=== PATIENT | female | born 1950 | race Caucasian/White ===

== ENCOUNTER 2018-10-31 14:27 | Inpatient (IN) ==
[2018-10-31] MEDS: Sod Chloride 0.9% Inj 1,000 ML IV.CONT SCH (14:45)
--- NOTE | 2018-10-31 14:58 | CT ---
EXAM DATE: 10/31/2018 2:47 PM EST AGE/SEX: 89 years / Female INDICATIONS: Stroke alert, right sided facial droop. CLINICAL DATA: This is the patient's initial encounter. Patient reports that signs and symptoms have been present for 1 day and indicates a pain score of Nonresponsive. MEDICAL/SURGICAL HISTORY: Non-responsive. Non-responsive. RADIATION DOSE: 52.83 CTDI (mGy) COMPARISON: No prior exams available for comparison. TECHNIQUE: CT of the head without contrast. Using automated exposure control and adjustment of the mA and/or kV according to patient size, radiation dose was kept as low as reasonably achievable to ob tain optimal diagnostic quality images. DICOM format image data is available electronically for revi ew and comparison. FINDINGS: Cerebrum: The ventricles are normal for age. Low-density left frontal parietal lobe likely acute inf arct. No evidence of midline shift, mass lesion or hemorrhage. No extraaxial fluid collections are s een. Posterior Fossa: The cerebellum and brainstem are intact. The 4th ventricle is midline. The cerebe llopontine angle is unremarkable. Extracranial: The visualized portion of the orbits is intact. Skull: The calvaria is intact. No evidence of skull fracture. CONCLUSION: 1. Small acute/subacute infarct left frontal parietal lobe. [facility] Electronically signed by: Magan Haney MD Board Certified Radiologist 10/31/2018 2:57 PM EST
[2018-10-31 15:16] LABS: Baso # (Auto) 0.1 th/mm3 (0.0-0.2); Baso % (Auto) 0.9 % (0.0-2.0); Eos # (Auto) 0.3 th/mm3 (0.0-0.4); Hematocrit 42.6 % (35.0-46.0); Lymph # (Auto) 3.6 th/mm3 (1.0-4.8); Lymph % (Auto) 44.3 % (9.0-44.0); Mean Corpuscular HGB Conc 35.2 % (32.0-36.0); Mean Corpuscular Volume 93.6 fL (80.0-100.0); Mean Platelet Volume 8.2 fL (7.0-11.0); Mono # (Auto) 0.5 th/mm3 (0.0-0.9); Mono % (Auto) 6.7 % (0.0-8.0); Neut # (Auto) 3.6 th/mm3 (1.8-7.7); Neut % (Auto) 44.1 % (16.0-70.0); Platelet Count 310 th/mm3 (150-450); Red Blood Count 4.55 mil/mm3 (4.00-5.30); Red Cell Distribution Width 12.1 % (11.6-17.2); White Blood Count 8.1 th/mm3 (4.0-11.0)
[2018-10-31 15:19] LABS: Activated Partial Thrombo Time 21.4 sec (23.4-31.7)
--- NOTE | 2018-10-31 15:21 | CT ---
EXAM DATE: 10/31/2018 3:15 PM EST AGE/SEX: 89 years / Female INDICATIONS: Stroke alert, right sided facial droop. CLINICAL DATA: This is the patient's initial encounter. Patient reports that signs and symptoms have been present for 1 day and indicates a pain score of Nonresponsive. MEDICAL/SURGICAL HISTORY: Non-responsive. Non-responsive. RADIATION DOSE: 9.95 CTDI (mGy) ; Combined studies [place] [facility] [place] W 3D, [place]/2018. [facility] [place] HEAD WO CON, 10/31/2018. . TECHNIQUE: Volumetric scanning was performed using a multi-row detector CT scanner during bolus infu maribell of 100 ml Visipaque 320 (iodixanol) nonionic water-soluble contrast as a cumulative dose for mu ltiple exams. The data was post processed with a variety of visualization algorithms including full volume maximum intensity projection, multi-planar sliding thin slab reformation, curved planar refor mation, and surface rendering techniques. Using automated exposure control and adjustment of the mA and/or kV according to patient size, radiation dose was kept as low as reasonably achievable to obtai n optimal diagnostic quality images. DICOM format image data is available electronically for review and comparison. FINDINGS: There is excellent visualization of the major intracranial arteries out to the second-order branch ve ssels. There is no evidence for aneurysm, vessel truncation or stenosis, and no evidence for vascula r malformation. CONCLUSION: 1. No large vessel stenosis or aneurysm. Report was called by Medina to [facility] . Electronically signed by: Magan Haney MD Board Certified Radiologist 10/31/2018 3:19 PM EST
--- NOTE | 2018-10-31 15:34 | CT ---
EXAM DATE: 10/31/2018 3:24 PM EST AGE/SEX: 89 years / Female INDICATIONS: Stroke alert, right sided facial droop. CLINICAL DATA: This is the patient's initial encounter. Patient reports that signs and symptoms have been present for 1 day and indicates a pain score of Nonresponsive. MEDICAL/SURGICAL HISTORY: Non-responsive. Non-responsive. RADIATION DOSE: 9.95 CTDI (mGy) ; Combined studies COMPARISON: No prior exams available for comparison. TECHNIQUE: Volumetric scanning was performed using a multirow detector CT scanner during bolus infus ion of 100 ml Visipaque 320 (iodixanol) nonionic water-soluble contrast as a cumulative dose for mul tiple exams. The data was postprocessed with a variety of visualization algorithms including full-v olume maximum intensity projection, multiplanar sliding thin-slab reformation, curved-planar reformat ion, and surface-rendering techniques. Using automated exposure control and adjustment of the mA and /or kV according to patient size, radiation dose was kept as low as reasonably achievable to obtain o ptimal diagnostic quality images. DICOM format image data is available electronically for review and comparison. Percent stenosis is calculated using the diameter of the stenotic region over the diameter of the nor mal distal internal carotid artery. FINDINGS: Aortic Arch: There is a three-vessel origin of the great vessels from the aorta. No evidence of ost ial narrowing Right Carotid: The common carotid artery is intact. The carotid bulb has a normal configuration wit hout ulceration or narrowing. The internal carotid artery lumen is smooth without stenosis. The ext ernal carotid artery is intact. Left Carotid: The common carotid artery is intact. The carotid bulb has a normal configuration with out ulceration or narrowing. The internal carotid artery lumen is smooth without stenosis. The exte rnal carotid artery is intact. Vertebrals: The vertebral arteries have a symmetric diameter. No stenotic lesions are seen. CONCLUSION: 1. No carotid stenosis seen Report was called by Medina to [facility]. Electronically signed by: Magan Haney MD Board Certified Radiologist 10/31/2018 3:32 PM EST
[2018-10-31] MEDS ORDERED: levETIRAcetam 1000mg/100mL Inj 100 ML IV.SIG ONE (15:36)
[2018-10-31 15:48] LABS: Creatine Kinase 100 U/L (26-192)
[2018-10-31] MEDS ORDERED: Aspirin 300 MG Supp RECTAL ONE (15:48)
[2018-10-31 15:57] VITALS: RESP 18
--- NOTE | 2018-10-31 16:08 | ECG ---
Date Performed: 10/31/2018 Time Performed: 14:28:23 PTAGE: 68 years EKG: Sinus rhythm POSSIBLE LEFT ATRIAL ENLARGEMENT INCOMPLETE RIGHT BUNDLE BRANCH BLOCK MODERATE ST DEPRESSION ABNORMA L ECG NO PREVIOUS TRACING DOCTOR: Connor Paniagua Interpretating Date/Time 10/31/2018 16:06:55
--- NOTE | 2018-10-31 16:13 | ED ---
HPI General Chief complaint: Neuro Symptoms/Deficit Stated complaint: medical Time Seen by Provider: 10/31/18 14:35 Source: patient Limitations: altered mental status History of Present Illness HPI narrative: 68-year-old female presents with her grandson with 30-minute onset of unable to talk and feels like she is having a stroke again. She originally was registered as a [facility] patient as he did not have her license to confirm her name initially. He states that she has had history of strokes before as well as seizures. He states she has been taking her seizure meds but is not sure which ones. Patient is currently nonverbal and cannot provide me with any history and history is significantly limited. Related Data Allergies Allergy/AdvReac Type Severity Reaction Status Date / Time No Allergy Information Allergy Unverified 10/31/18 14:31 Available Review of Systems ROS Unobtainable ROS Unobtainable: unobtainable due to mental status PMFSH History History Provided By: Medical Record (January 2018 left parietal intracranial hemorrhage, seizure disorder, similar presentation with prior seizures) Medical History Medical History History of stroke (Acute) Social History Social History Substance History: Unable to Obtain Smoking Status: Unknown if ever smoked How Often Do You Have a Drink Containing Alcohol: Unable to Obtain Recent Travel in [place] within the Last 8 Weeks: No Recent Out of Country Travel within the Last 8 Weeks: No Immunization History Tetanus Immunization: Unable to Assess Exam Narrative Exam Narrative: GENERAL: 68-year-old female in no apparent distress SKIN: Focused skin assessment warm/dry. HEAD: Atraumatic. Normocephalic. EYES: Pupils equal and round. No scleral icterus. No injection or drainage. ENT: No nasal bleeding or discharge. Mucous membranes pink and moist. NECK: Trachea midline. No JVD. CARDIOVASCULAR: Regular rate and rhythm. RESPIRATORY: No accessory muscle use. Clear to auscultation. Breath sounds equal bilaterally at apices. GASTROINTESTINAL: Abdomen soft, nondistended. MUSCULOSKELETAL: No obvious deformities. No clubbing. No cyanosis. No edema. NEUROLOGICAL: patient is nonverbal, patient is having difficulty following commands but has muscle tone noted when I try to lift both her arms, she is able to move her toes but is very difficult to get a great neuro assessment given when I asked her something she looks at me confused and cannot do it on initial assessment Course Reevaluation(s) Reevaluation #1: On review of records patient has history of intracranial hemorrhage on January 2018 and is not a candidate for TPA. Presentation is more likely possible seizure so she was given half a milligram of Ativan and given a gram of Keppra. Dilantin level added on. Today's CT showed left frontal parietal lobe infarct so she was given rectal aspirin and she will be admitted to get additional care. Prior records found with [id number] medical record number under this name Reevaluation #2: Jasmine updated and agrees to plan Consultations Consultation #1: dr de la fuente agrees no tpa given ich history and to place on seizure medation Consultation #2: dr goldberg agrees to admit Initial Documented Vital Signs Temperature 98.7 F 10/31/18 14:28 Pulse Rate 95 H 10/31/18 14:28 Respiratory Rate 18 10/31/18 14:28 Blood Pressure 154/70 H 10/31/18 14:28 Pulse Oximetry 99 10/31/18 14:28 Last Documented Vital Signs Temperature 98.7 F 10/31/18 14:28 Pulse Rate 75 10/31/18 15:30 Respiratory Rate 18 10/31/18 15:30 Blood Pressure 108/55 L 10/31/18 15:30 Pulse Oximetry 98 10/31/18 15:30 NIH Stroke Scale NIH Stroke Scale Level of Consciousness: 0-Alert Orientation Questions: 2-Neither task correct Responds to Commands: 1-One task correct Gaze Eye Movement: 1-Partial gaze palsy Visual Plascencia: 1-Partial hemianopia Facial Movement: 3-Complete unilateral palsy Motor Functions Arm LEFT: 1-Drift before 10 seconds Motor Functions Arm RIGHT: 2-Falls before 10 seconds Motor Functions Leg LEFT: 2-Falls before 5 seconds Motor Functions Leg RIGHT: 1-Drift before 5 seconds Limb Ataxia: 1-Ataxia in one limb Sensory Loss: 1-Mild sensory loss Best Language: 3-Mute or global aphasia Articulation: UN-Intubated / Barriers Extinction or Inattention Sensory: 2-Loss 2 modalities Total: 21 Medical Decision Making MDM Narrative Medical decision making narrative: Stroke alert was initiated given weakness and a aphasia with 30-minute onset. Will follow test and reevaluate Medical Screen Exam Complete: Yes Emergency Medical Condition: Yes Differential Diagnosis Differential Diagnosis: Stroke, bleed, seizure Lab Data Result diagrams: 10/31/18 14:30 Lab Results 10/31/18 10/31/18 10/31/18 Range/Units 14:30 14:30 14:30 WBC 8.1 (4.0-11.0) th/mm3 RBC 4.55 (4.00-5.30) mil/mm3 Hgb 15.0 (11.6-15.3) gm/dL POC Hgb (Calc) 14.6 (11.6-15.3) g/dL Hct 42.6 (35.0-46.0) % POC Hct 43.0 (35-46.0) % MCV 93.6 (80.0-100.0) fL MCH 33.0 (27.0-34.0) pg MCHC 35.2 (32.0-36.0) % RDW 12.1 (11.6-17.2) % Plt Count 310 (150-450) th/mm3 MPV 8.2 (7.0-11.0) fL Neut % (Auto) 44.1 (16.0-70.0) % Lymph % (Auto) 44.3 H (9.0-44.0) % [place] % (Auto) 6.7 (0.0-8.0) % Eos % (Auto) 4.0 (0.0-4.0) % Baso % (Auto) 0.9 (0.0-2.0) % Neut # (Auto) 3.6 (1.8-7.7) th/mm3 Lymph # (Auto) 3.6 (1.0-4.8) th/mm3 [place] # (Auto) 0.5 (0.0-0.9) th/mm3 Eos # (Auto) 0.3 (0.0-0.4) th/mm3 Baso # (Auto) 0.1 (0.0-0.2) th/mm3 WBC Differential . Differential Comment Auto diff final PT 10.0 (9.8-11.6) sec INR 1.0 Ratio APTT 21.4 L (23.4-31.7) sec Fibrinogen 345 (227-377) mg/dL POC Sodium 138 (137-144) mmol/L POC Potassium 3.5 L (3.6-5.0) mmol/L POC Chloride 103 (102-111) mmol/L POC BUN 18 (5-21) mg/dL POC Creatinine 0.9 (0.6-1.3) mg/dL POC Glucose 103 (68-110) mg/dL Total Creatine Kinase 100 (26-192) U/L Troponin I Less than 0.02 L (0.02-0.05) ng/mL Imaging Data Radiologist's impression: Head CT 10/31/18 14:35 CONCLUSION: 1. Small acute/subacute infarct left frontal parietal lobe. Report was called by Medina Mcmillan. Head CTA 10/31/18 14:35 CONCLUSION: 1. No large vessel stenosis or aneurysm. Report was called by Medina to [facility] . Neck CTA 10/31/18 14:35 CONCLUSION: 1. No carotid stenosis seen Report was called by Medina De La Fuente. Discharge Plan Discharge Disposition Patient Disposition: ED Admit(ED Internal Use Only) Discharge Order Discharge Orders: ED Use Only Admit Order (Routine); Ordered 10/31/18 Ordered By: Jaycee Mcmillan Discharge Details Diagnosis: Expressive aphasia, Weakness Physicians Team ED Provider: Jaycee Mcmillan Primary Care Provider: Germán Smith Attending Provider: Nga Goldberg Discharge Interventions Interventions: Vital Signs Last Done: 10/31/18 15:30 Status ED Status: Admitted Patient
[2018-10-31] MEDS ORDERED: Bisacodyl 10 MG Supp RECTAL PRN (16:14)
[2018-10-31] MEDS ORDERED: Acetaminophen 325 MG Tablet PO PRN (16:14)
[2018-10-31] MEDS ORDERED: Enoxaparin Inj 40 MG/0.4 ML Syringe SQ SCH (16:15)
[2018-10-31 16:38] LABS: Amphetamine Screen,Urine Neg (Neg); Barbiturate Screen,Urine Neg (Neg); Cannabinoid Screen,Urine Neg (Neg); Cocaine Screen,Urine Neg (Neg)
[2018-10-31 16:43] LABS: Bilirubin,Urine Negative (Negative); Clarity,Urine Clear (Clear); Color,Urine Straw (Yellw/Straw); Glucose,Urine (UA) Negative (Negative); Leukocyte Esterase,Urine Negative (Negative); Mucus,Urine Few /lpf (Occasional); Nitrite,Urine Negative (Negative); Specific Gravity,Urine 1.033 (1.002-1.035)
[2018-10-31 16:44] LABS: Opiate Screen,Urine Neg (Neg)
--- NOTE | 2018-10-31 17:22 | P.HPIM ---
History of Present Illness Primary Care Physician: Germán Urbina MD Chief Complaint: cant talk History of Present Illness: 68yo w f w hx of stroke presents to ED 30 min after acute onset of difficulty speaking and moving her right arm. She has had prior left sided stroke and right hemiparesis and subsequent hemorrhagic cva in january of last year but has been taking aspirin. Her grandson at bedside states she has been in her normal state of health until today. She has been going to the eye doctor, getting vitreal injections to the left eye for macular degeneration but most recently last week it was cancelled bc opthamologist told her it appeared that she had a L opthalmic artery infarction and was told to go have a carotid doppler done. Patient has had multiple episodes like this, per the Grandson, about every two weeks. She has had a ZAYRA that was neg for thrombus or shunt, and she also has had loop recorder placement with no evidence of arrhythmia. Patient was unable to speak or move right arm and had some left arm weakness in the ED, and was mildly hypertensive initially, Grandson mentioned that her blood pressures have been dropping and her pcp wanted to decrease her bp medication, but her blood pressures are labile and were then going up as well. During my exam, patient was attempting to speak but it was sputtering and she was having difficulty with word finding, she was reaching to the right side with her left arm, and unable to follow commands, but seemed to understand requests. PMhx: htn, hypothyroidism, macular degeneration, seizure do, breast ca post radiation left, PSXhx:eye surgery as child, loop recorder, zayra, lumpectomy left breast SOChx:denies tobacco was a smoker quit , no vapes, denies etoh other than occasional FAMhx: cad, htn Inpatient Certification Inpatient Certification: I certify that the inpatient services were ordered in accordance with Medicare regulations governing the order. This includes certification that hospital inpatient services are reasonable and necessary and in the case of services not specified as inpatient-only under 42 CFR 419.22(n), that they are appropriately provided as inpatient services in accordance to with the 2-midnight benchmark under 43 CFR 412.3(e) Estimated Total Length of Stay (Days): 2 Plans for Post Hospital Care: Other acute care hospital Review of Systems ROS Unobtainable: unobtainable due to mental status [facility] Medical History Medical History History of stroke (Acute) Social History Social History Substance History: Unable to Obtain Smoking Status: Unknown if ever smoked How Often Do You Have a Drink Containing Alcohol: Unable to Obtain Recent Travel in [facility] within the Last 8 Weeks: No Recent Out of Country Travel within the Last 8 Weeks: No Immunization History Tetanus Immunization: Unable to Assess Medications and Allergies Allergies Allergy/AdvReac Type Severity Reaction Status Date / Time No Allergy Information Allergy Unverified 10/31/18 14:31 Available Home Medications Medication Instructions Recorded Confirmed Type Unable to Obtain Home Meds 10/31/18 10/31/18 History Active Medications: Active Medications Acetaminophen (Tylenol) 650 mg PO Q4H PRN PRN Reason: Temp > 100.4 Al Hydroxide/Mg Hydroxide (Milk Of Magnesia Liq) 30 ml PO Q12H PRN PRN Reason: Mild Constipation Bisacodyl (Dulcolax Supp) 10 mg RECTAL DAILY PRN PRN Reason: SEVERE CONSITIPATION Enoxaparin Sodium (Lovenox Inj) 40 mg SQ Q24H [facility] Sodium Chloride (Ns Inj) 1,000 mls @ 70 mls/hr IV.CONT .[id number] [facility] Last Admin: 10/31/18 14:45 Dose: 70 mls/hr Lactulose (Lactulose Liq) 30 ml PO DAILY PRN PRN Reason: SEVERE CONSITIPATION Ondansetron HCl (Zofran Inj) 4 mg IV.PUSH Q6H PRN PRN Reason: NAUSEA OR VOMITING Senna/Docusate Sodium (Jessica-Colace) 1 tab PO BID [facility] Sennosides (Senokot) 17.2 mg PO Q12H PRN PRN Reason: Moderate Constipation Sodium Chloride (Ns Flush) 2 ml IV.FLUSH BID JER[facility]Y Sodium Chloride (Ns Flush) 2 ml IV.FLUSH PRN PRN PRN Reason: FLUSH AFTER USING IV ACCESS Physical Exam Vital signs: Vital Signs 10/31/18 14:28 10/31/18 14:31 10/31/18 14:35 Temperature 98.7 F Pulse Rate 95 H 87 Respiratory Rate 18 16 Blood Pressure 154/70 H 152/68 H Pulse Oximetry 99 100 99 10/31/18 15:30 Temperature Pulse Rate 75 Respiratory Rate 18 Blood Pressure 108/55 L Pulse Oximetry 98 Intake & Output 10/30/18 10/31/18 10/31/18 18:59 06:59 18:59 Weight 72.575 kg Narrative: GEN well-developed well-nourished 68yo w f awake alert pleasant in no acute distress, with expressive aphasia, HEENT normocephalic atraumatic, Pupils equal reactive, sclerae anicteric, extraocular motion intact, proptic L eye, mucosa is moist. posterior pharynx no exudate NECK supple no JVD trachea midline thyroid smooth not enlarged ANT CHEST WALL without mass or tenderness to palpation HEART S1-S2 regular without significantmurmur gallops or clicks LUNGS clear to auscultation without wheeze rales or rhonchi , full symmetric expansion BACK exam is no CVA tenderness or mass ABDOMEN soft nondistended positive bowel sounds no guarding rebound rigidity LYMPH NODES no cervical, axillary or inguinal adenopathy noted EXTREMITIES no clubbing cyanosis or significant edema, peripheral pulses palpable +2 NEUROLOGIC cranial nerves II through XII appear grossly intact, strength is 2 out of 5 right upper, 4/5 r upper, weaker RLE, unable to follow commands to move le, babinski equivocal SKIN warm and dry with decreased turgor, no other rash or sores noted Urinary Catheter Management Straight: Cath placed during this visit: yes Reason for continuing: Not indwelling catheter Insertion date: 10/31/18 Insertion time: 16:00 Results Labs CBC & Chem 7: 10/31/18 14:[address] 10/31/18 14:35 CONCLUSION: 1. Small acute/subacute infarct left frontal parietal lobe. Report was called by [facility] bernabe Mcmillan. Head CTA 10/31/18 14:35 CONCLUSION: 1. No large vessel stenosis or aneurysm. Report was called by Tocrahat to [facility] . Neck CTA 10/31/18 14:35 CONCLUSION: 1. No carotid stenosis seen Report was called by Medina to [facility]. Caprini VTE Risk Assessment Caprini VTE Risk Assessment: Moderate/High Risk (score >= 2) Caprini Risk Assessment Model: Point Value = 1 Point Value = 2 Point Value = 3 Point Value = 5 Age 41-60 Minor surgery BMI > 25 kg/m2 Swollen legs Varicose veins or History of unexplained or recurrent spontaneous Oral contraceptives or hormone replacement Sepsis (< 1 month) Serious lung disease, including pneumonia (< 1 month) Abnormal pulmonary function Acute myocardial infarction Congestive heart failure (< 1 month) History of inflammatory bowel disease Medical patient at bed rest Age 61-74 Arthroscopic surgery Major open surgery (> 45 min) Laparoscopic surgery (> 45 min) Malignancy Confined to bed (> 72 hours) Immobilizing plaster cast Central venous access Age >= 75 History of VTE Family history of VTE Factor V Leiden Prothrombin [id number] Lupus anticoagulant Anticardiolipin antibodies Elevated serum homocysteine Heparin-induced thrombocytopenia Other congenital or acquired thrombophilia Stroke (< 1 month) Elective arthroplasty Hip, pelvis, or leg fracture Acute spinal cord injury (< 1 month) Prophylaxis Regimen: Total Risk Factor Score Risk Level Prophylaxis Regimen 0-1 Low Early ambulation 2 Moderate Order ONE of the following: *Sequential Compression Device (SCD) *Heparin 5000 units SQ BID 3-4 Higher Order ONE of the following medications: *Heparin 5000 units SQ TID *Enoxaparin/Lovenox 40 mg SQ daily (WT < 150 kg, CrCl > 30 mL/min) *Enoxaparin/Lovenox 30 mg SQ daily (WT < 150 kg, CrCl > 10-29 mL/min) *Enoxaparin/Lovenox 30 mg SQ BID (WT < 150 kg, CrCl > 30 mL/min) AND/OR *Sequential Compression Device (SCD) 5 or more Highest Order ONE of the following medications: *Heparin 5000 units SQ TID (Preferred with Epidurals) *Enoxaparin/Lovenox 40 mg SQ daily (WT < 150 kg, CrCl > 30 mL/min) *Enoxaparin/Lovenox 30 mg SQ daily (WT < 150 kg, CrCl > 10-29 mL/min) *Enoxaparin/Lovenox 30 mg SQ BID (WT < 150 kg, CrCl > 30 mL/min) AND *Sequential Compression Device (SCD) Assessment and Plan Plan ACUTE CVA L FRONTOPARIETAL LOBE infarct w expressive aphasia and left sided weakness - admit, PT,ST,OT, Neuro eval, mra head/neck, statin, hypercoag panel? asa. HX L CVA w encephalomalacia and R HEMIPARESIS, L Parietal ICH 01/30 - not candidate for TPA SEIZURE DO - cont home meds, dilantin pending HTN - labile - was 165 admit then 95. HYPOTHYROIDISM - cont synthroid Hx BREAST CA pos radiation - post tamoxifen HYPOKALEMIA - replace per protocol, check mg dvt prophylaxis dispo - rehab anticipated.
[2018-10-31] MEDS ORDERED: levETIRAcetam 1000mg/100mL Inj 100 ML IV.SIG SCH (18:00)
[2018-10-31 21:04] LABS: D-Dimer 0.38 mg/L FEU (0.00-0.50)
[2018-10-31] MEDS: Senna/Docusate Sodium 8.6/50 MG Tablet PO SCH (22:17)
[2018-11-01] MEDS: levETIRAcetam 1000mg/100mL Inj 100 ML IV.SIG SCH ×2 (04:21→17:00)
[2018-11-01] MEDS: Sod Chloride 0.9% Inj 1,000 ML IV.CONT SCH (06:44)
[2018-11-01] MEDS: Senna/Docusate Sodium 8.6/50 MG Tablet PO SCH (08:43)
[2018-11-01] MEDS ORDERED: Gadobutrol PF 7.5 MMOL/7.5 ML Vial (for RAD) IV.SIG ONE (11:22)
--- NOTE | 2018-11-01 11:37 | MR ---
EXAM DATE: 11/01/2018 11:28 AM EST AGE/SEX: 68 years / Female INDICATIONS: Aphasia. Weakness. CLINICAL DATA: This is the patient's initial encounter. Patient reports that signs and symptoms have been present for 2 days and indicates a pain score of 0/10. MEDICAL/SURGICAL HISTORY: Hypertension. Hypothyroidism. Carcinoma, breast. Seiaures.CVA. . Loop recorder.DELIA.Left breast lumpectomy. COMPARISON: [facility], MR HEAD W/O CONTRAST, 09/22/2018. . TECHNIQUE: Multiplanar, multisequence examination of the brain was performed without and with 7cc ml Gadavist (gadobutrol) contrast as a single exam dose. FINDINGS: Cerebrum: Encephalomalacia left parietal lobe likely from old infarct. There is some hemosiderin dep osition. The ventricles are normal for age. No evidence of midline shift, mass lesion, hemorrhage or acute infarction. No extraaxial fluid collections are seen. The pituitary gland and suprasellar ci santamaria are normal in configuration. White Matter: No significant signal abnormalities are seen in the white matter. Posterior Fossa: The cerebellum and brainstem are intact. The 4th ventricle is midline. The cerebel lopontine angle is unremarkable. The cerebellar tonsils are normal in position. Diffusion Imaging: No focal areas of restricted diffusion are seen. No evidence of acute infarction . Extracranial: The visualized portions of the orbits and paranasal sinuses are unremarkable. Post Contrast: Very minimal enhancement within the old infarct left parietal lobe. CONCLUSION: 1. Old infarct left parietal lobe with hemosiderin deposition. Very minimal enhancement noted. 2. The remainder the brain is otherwise unremarkable. Electronically signed by: Magan Haney MD Board Certified Radiologist 11/01/2018 11:36 AM EST
[2018-11-01] MEDS ORDERED: LORazepam 1 MG Tablet PO ONE (12:43)
--- NOTE | 2018-11-01 12:43 | P.CONNEU ---
History of Present Illness Service: Neurology Primary Care Provider: Germán Urbina MD Chief Complaint: cant talk History of Present Illness: 68-year-old female readmitted for acute speech changes. These have resolved. Similar presentation to previous ER visits. Due to her history of ICH previous similar episodes which resolved she is not IV TPA candidate. She states she has been taking her Keppra. Had difficulty tolerating Dilantin. On her own accord she has been taking a baby aspirin. We discussed the risks and benefits of this in light of her previous ICH. Similar episode occurring 09/2018, 08/2018. MRI scans done at those dates and carotid imaging have been negative. Episodes felt to be seizures 03/2018 MRI brain scan demonstrated possible ischemic region outside the area of her old intracranial hemorrhage. Carotid imaging negative at that time. Aphasia with right-sided jerking. 01/2018 she suffered a left intracranial hemorrhage and resultant seizure activity. Review of Systems All other systems reviewed negative except as stated in HPI [facility] - History History Provided By: Patient - Medical History Medical History: Medical History (Last Reviewed 11/01/18 @ 09:04 by Daily Jimenez) History of stroke - Tobacco History Second Hand Smoke Exposure: No Tobacco Use In Past 30 Days: No Smoking Status: Former smoker - Alcohol History How Often Do You Have a Drink Containing Alcohol: 4 or more times a week - Substance Use History Substance History: No History of Abuse - Travel History Recent Travel in the [place] Within the Last 8 Weeks: No Recent Travel Out of the Country Within the Last 8 Weeks: No - Immunization History Tetanus Immunization: <5 Years Hx Influenza Vaccine This Season: No Medications and Allergies Active Medications: Active Medications Acetaminophen (Tylenol) 650 mg PO Q4H PRN PRN Reason: Temp > 100.4 Al Hydroxide/Mg Hydroxide (Milk Of Magnesia Liq) 30 ml PO Q12H PRN PRN Reason: Mild Constipation Bisacodyl (Dulcolax Supp) 10 mg RECTAL DAILY PRN PRN Reason: SEVERE CONSITIPATION Enoxaparin Sodium (Lovenox Inj) 40 mg SQ Q24H [facility] Last Admin: 10/31/18 17:29 Dose: Not Given Sodium Chloride (Ns Inj) 1,000 mls @ 70 mls/hr IV.CONT .[id number] [facility] Last Admin: 11/01/18 06:44 Dose: 70 mls/hr Levetiracetam (Keppra 1000 Mg/100 Ml Premix) 100 mls @ 400 mls/hr IV.SIG Q12H [facility] Last Infusion: 11/01/18 05:49 Dose: Infused Lactulose (Lactulose Liq) 30 ml PO DAILY PRN PRN Reason: SEVERE CONSITIPATION Ondansetron HCl (Zofran Inj) 4 mg IV.PUSH Q6H PRN PRN Reason: NAUSEA OR VOMITING Potassium Chloride (K-Dur) 20 meq PO BID [facility] Last Admin: 10/31/18 22:16 Dose: Not Given Senna/Docusate Sodium (Jessica-Colace) 1 tab PO BID [facility] Last Admin: 11/01/18 08:43 Dose: Not Given Sennosides (Senokot) 17.2 mg PO Q12H PRN PRN Reason: Moderate Constipation Sodium Chloride (Ns Flush) 2 ml IV.FLUSH BID [facility] Last Admin: 10/31/18 22:17 Dose: Not Given Sodium Chloride (Ns Flush) 2 ml IV.FLUSH PRN PRN PRN Reason: FLUSH AFTER USING IV ACCESS Allergies Allergy/AdvReac Type Severity Reaction Status Date / Time No Allergy Information Allergy Verified 10/31/18 18:08 Available Home Medications Medication Instructions Recorded Confirmed Type Unable to Obtain Home Meds 10/31/18 10/31/18 History Exam Vital signs: Vital Signs 10/31/18 14:28 10/31/18 14:31 10/31/18 14:35 Temperature 98.7 F Pulse Rate 95 H 87 Respiratory Rate 18 16 Blood Pressure 154/70 H 152/68 H Pulse Oximetry 99 100 99 10/31/18 15:30 10/31/18 16:00 10/31/18 17:00 Temperature Pulse Rate 75 74 75 Respiratory Rate 18 18 18 Blood Pressure 108/55 L 92/54 L 108/60 Pulse Oximetry 98 97 100 10/31/18 20:00 10/31/18 21:03 11/01/18 00:00 Temperature 98.4 F 97.8 F Pulse Rate 65 72 70 Respiratory Rate 18 18 Blood Pressure 121/70 111/66 Pulse Oximetry 97 98 11/01/18 01:30 11/01/18 04:00 11/01/18 04:19 Temperature 98.0 F Pulse Rate 70 61 65 Respiratory Rate 18 Blood Pressure 119/72 Pulse Oximetry 98 11/01/18 08:00 11/01/18 08:39 Temperature 97.8 F Pulse Rate 66 80 Respiratory Rate 18 Blood Pressure 133/82 Pulse Oximetry 97 Intake & Output 10/31/18 11/01/18 11/01/18 18:59 06:59 18:59 Intake Total 100 / 100 1100 / 1100 Output Total 300 / 300 Balance 100 / 100 800 / 800 Weight 72.575 kg 74 kg Intake: IV 100 / 100 1100 / 1100 NS Inj 1,000 ML @ 70 mls/hr IV. 1000 / 1000 CONT .[id number] [facility] Rx#:[id number] Keppra 1000 mg/100 mL Premix 100 / 100 100 / 100 100 ML @ 400 mls/hr IV.SIG Q12H [facility] Rx#:[id number] Oral 0 / 0 Output: Urine 300 / 300 Other: Date of Last Bowel Movement 10/31/18 Narrative: GENERAL: in NAD, SKIN: Warm and dry. HEAD: Atraumatic. Normocephalic. EYES: Pupils equal and round. No scleral icterus. ENT: No nasal bleeding or discharge. NECK: Trachea midline. No JVD. CARDIOVASCULAR: Regular rate and rhythm. RESPIRATORY: No accessory muscle use. GASTROINTESTINAL: Abdomen soft, non-tender, nondistended. MUSCULOSKELETAL: Extremities without clubbing, cyanosis, or edema. NEUROLOGICAL: Awake and alert. No aphasia, oriented x3 fluent articulate, No facial asymmetry, OU 3-2mm, eomi, mild visual field deficit OD, No drift, Motor grossly within normal limits. Five out of 5 muscle strength in the arms and legs. PSYCHIATRIC: Slightly agitated, pressured speech - Constitutional no acute distress - Routine HEENT Exam Head: Present: normocephalic Eye: Present: EOMI Results - Labs CBC & Chem 7: 10/31/18 14:30 Labs: Laboratory Results - last 24 hr 10/31/18 10/31/18 10/31/18 14:30 14:30 14:30 WBC 8.1 RBC 4.55 Hgb 15.0 POC Hgb (Calc) 14.6 Hct 42.6 POC Hct 43.0 MCV 93.6 MCH 33.0 MCHC 35.2 RDW 12.1 Plt Count 310 MPV 8.2 Neut % (Auto) 44.1 Lymph % (Auto) 44.3 H [place] % (Auto) 6.7 Eos % (Auto) 4.0 Baso % (Auto) 0.9 Neut # (Auto) 3.6 Lymph # (Auto) 3.6 [place] # (Auto) 0.5 Eos # (Auto) 0.3 Baso # (Auto) 0.1 WBC Differential . Differential Comment Auto diff final PT 10.0 INR 1.0 APTT 21.4 L Fibrinogen 345 D-Dimer Quant (PE/DVT) POC Sodium 138 POC Potassium 3.5 L POC Chloride 103 POC BUN 18 POC Creatinine 0.9 POC Glucose 103 Total Creatine Kinase 100 Troponin I Less than 0.02 L Urine Color Urine Clarity Urine pH Ur Specific [place] Urine Protein Urine Glucose (UA) Urine Ketones Urine Occult Blood Urine Nitrate Urine Bilirubin Urine Urobilinogen Ur Leukocyte Esterase Urine WBC Urine Mucus Micro UA Comment Ur Microscopic Review Urine Culture Comments Urine Opiates Screen Ur Barbiturates Screen Phenytoin Ur Amphetamines Screen U Benzodiazepines Scrn Urine Cocaine Screen U Cannabinoids Screen Blood Type Antibody Screen 10/31/18 10/31/18 10/31/18 16:00 16:00 16:00 WBC RBC Hgb POC Hgb (Calc) Hct POC Hct MCV MCH MCHC RDW Plt Count MPV Neut % (Auto) Lymph % (Auto) [place] % (Auto) Eos % (Auto) Baso % (Auto) Neut # (Auto) Lymph # (Auto) [place] # (Auto) Eos # (Auto) Baso # (Auto) WBC Differential Differential Comment PT INR APTT Fibrinogen D-Dimer Quant (PE/DVT) POC Sodium POC Potassium POC Chloride POC BUN POC Creatinine POC Glucose Total Creatine Kinase Troponin I Urine Color Straw Urine Clarity Clear Urine pH 5.0 Ur Specific [place] 1.033 Urine Protein Negative Urine Glucose (UA) Negative Urine Ketones Negative Urine Occult Blood Negative Urine Nitrate Negative Urine Bilirubin Negative Urine Urobilinogen Less than 2 Ur Leukocyte Esterase Negative Urine WBC Less than 1 Urine Mucus Few H Micro UA Comment Cath-culture not ind Ur Microscopic Review Not Reportable Urine Culture Comments Cath-cult not ind Urine Opiates Screen Neg Ur Barbiturates Screen Neg Phenytoin Less than 0.4 L Ur Amphetamines Screen Neg U Benzodiazepines Scrn Neg Urine Cocaine Screen Neg U Cannabinoids Screen Neg Blood Type Antibody Screen 10/31/18 10/31/18 16:46 20:30 WBC RBC Hgb POC Hgb (Calc) Hct POC Hct MCV MCH MCHC RDW Plt Count MPV Neut % (Auto) Lymph % (Auto) [place] % (Auto) Eos % (Auto) Baso % (Auto) Neut # (Auto) Lymph # (Auto) [place] # (Auto) Eos # (Auto) Baso # (Auto) WBC Differential Differential Comment PT INR APTT Fibrinogen 264 D-Dimer Quant (PE/DVT) 0.38 POC Sodium POC Potassium POC Chloride POC BUN POC Creatinine POC Glucose Total Creatine Kinase Troponin I Urine Color Urine Clarity Urine pH Ur Specific [place] Urine Protein Urine Glucose (UA) Urine Ketones Urine Occult Blood Urine Nitrate Urine Bilirubin Urine Urobilinogen Ur Leukocyte Esterase Urine WBC Urine Mucus Micro UA Comment Ur Microscopic Review Urine Culture Comments Urine Opiates Screen Ur Barbiturates Screen Phenytoin Ur Amphetamines Screen U Benzodiazepines Scrn Urine Cocaine Screen U Cannabinoids Screen Blood Type AB Positive Antibody Screen Negative - Imaging Impressions Head CT 10/31/18 14:35 CONCLUSION: 1. Small acute/subacute infarct left frontal parietal lobe. Report was called by [facility] to [facility]. Head CTA 10/31/18 14:35 CONCLUSION: 1. No large vessel stenosis or aneurysm. Report was called by [facility] to [facility] . Neck CTA 10/31/18 14:35 CONCLUSION: 1. No carotid stenosis seen Report was called by [facility] to [facility]. Head MRI 11/01/18 00:00 CONCLUSION: 1. Old infarct left parietal lobe with hemosiderin deposition. Very minimal enhancement noted. 2. The remainder the brain is otherwise unremarkable. 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 Vascular imaging negative. EEG is positive Possible postictal mild encephalopathy/irritability Seen by hematology in the past. Seen by cardiology had a DELIA which was negative for PFO Recommendation Follow-up Keppra level Start Tegretol EEG Follow-up MRI brain No driving, operating any heavy machinery or dangerous machinery, swimming alone for at least 6 months of being seizure, spell free.
[2018-11-01 12:56] VITALS: O2SAT 98
[2018-11-01] MEDS ORDERED: carBAMazepine 100 MG Chewable Tablets PO SCH (13:00)
--- NOTE | 2018-11-01 15:47 | P.PNIM ---
Subjective Interval history: Nursing denies any deterioration since last night. Patient denies having headaches nausea vomiting. She starts yelling at me asking me why no one has done a Doppler of her carotid ultrasounds. I informed her that we did a much more sensitive test which was a CTA of the neck which showed good blood flow in the carotid arteries. Patient expresses hesitation to starting Tegretol due to some drowsiness side effects of the medication. She reiterates multiple times that she thinks her blood pressure has a lot to do with her symptoms, says she is already discontinued amlodipine to address this. She asks me where are all of her strokes coming from. I informed her that we do not think a stroke has happened this time since her imaging workup is unremarkable. Physical Exam Vital signs: Vital Signs 10/31/18 16:00 10/31/18 17:00 10/31/18 20:00 Temperature 98.4 F Pulse Rate 74 75 65 Respiratory Rate 18 18 18 Blood Pressure 92/54 L 108/60 121/70 Pulse Oximetry 97 100 97 10/31/18 21:03 11/01/18 00:00 11/01/18 01:30 Temperature 97.8 F Pulse Rate 72 70 70 Respiratory Rate 18 Blood Pressure 111/66 Pulse Oximetry 98 11/01/18 04:00 11/01/18 04:19 11/01/18 08:00 Temperature 98.0 F Pulse Rate 61 65 66 Respiratory Rate 18 Blood Pressure 119/72 Pulse Oximetry 98 11/01/18 08:39 11/01/18 11:55 Temperature 97.8 F 97.7 F Pulse Rate 80 73 Respiratory Rate 18 18 Blood Pressure 133/82 107/75 Pulse Oximetry 97 98 Intake & Output 10/31/18 11/01/18 11/01/18 18:59 06:59 18:59 Intake Total 100 / 100 1100 / 1100 Output Total 300 / 300 Balance 100 / 100 800 / 800 Weight 72.575 kg 74 kg Intake: IV 100 / 100 1100 / 1100 NS Inj 1,000 ML @ 70 mls/hr IV. 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 Old infarct left parietal lobe with hemosiderin deposition. Very minimal enhancement noted. 2. The remainder the brain is otherwise unremarkable. 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 Hx of previous hemorrhagic stroke and ischemic stroke, seen on CT scan coming through the ER. intermittent Expressive aphasia w/ transient right sided weakness CTA's and MRI are negative for any acute findings. Appreciate neurology input , feels patient may having breakthrough seizures and suffering from post ictal encephalopathy as opposed to acute CVA/TIA. Starting the patient on Tegretol, follow-up Keppra level, repeat EEG pending. We will stop the aspirin per neurology's Cesar given history of ICH. -I informed the patient to follow-up with neurology outpatient to see if there are alternative treatments or antiepileptic drugs that she would like to try if Tegretol does not work out for her or if any AED does not work out well for -No driving, operating heavy machinery, or swimming -Patient does have a loop recorder and this will need to be interrogated with her adobe maker. -Denies any chest pain or shortness of breath, ambulating well. -ordered b12 and keppra levels History of ischemic CVA Discussed with neurology, risk of baby aspirin with history of hemorrhage would be greater than benefit of preventing ischemic stroke, thus it was discontinued Hypercoagulable panel pending- can be followed up as outpatient. Patient was originally anticipated to need at least 2 midnights of stay at the time of admission, but her overall clinical status improved faster than expected. Patient has been maximal benefit from hospitalization and is stable for discharge. Labs and EEG can be followed up outpt. Progress Note: Quality VTE Deep Vein Thrombosis/Pulmonary Embolism Present on Admission: No
[2018-11-01 16:16] VITALS: BP 111/72; PULSE 88; TEMP 98.1
--- NOTE | 2018-11-01 22:23 | MG ---
cc: Evaristo Mac MD DATE OF STUDY: 11/01/2018 ELECTROENCEPHALOGRAM RECORD NUMBER: [id number] Stage II sleep spindle activity, generalized slowing, focal slowing in temporal region. Complex bursts. Occasional . There is reversal at T3 about 45. Good EEG variability, reactivity. Reduced driving on photic stimulation. Single-lead EKG showing sinus rhythm. INTERPRETATION: Left frontotemporal region irritability. However, no active seizures. Sleep study. Clinical correlation. MD MIREYA De Luna/elvin/mercy , 08:24 PM , 08:27 PM
[2018-11-04 15:53] LABS: Thrombin Time 16 sec (13-19)
== END 2018-11-01 18:45 | disposition home or self-care (01) | DRG 101 ==
LOC: NEPC 14:27 → EDBD 14:27 → NEDA 15:54 → HCIN 18:45
PROVIDERS: ADMIT Hospitalist; ATTEND Hospitalist
DX: Z85.3 Personal history of malignant neoplasm of breast; G40.909 Epilepsy, unspecified, not intractable, without status epilepticus; G40.209 Localization-related (focal) (partial) symptomatic epilepsy and epileptic syndromes with complex partial seizures, not intractable, without status epilepticus; R47.01 Aphasia; Z87.891 Personal history of nicotine dependence; Z92.3 Personal history of irradiation; I69.351 Hemiplegia and hemiparesis following cerebral infarction affecting right dominant side; H35.30 Unspecified macular degeneration; I10 Essential (primary) hypertension; E03.9 Hypothyroidism, unspecified; Z82.49 Family history of ischemic heart disease and other diseases of the circulatory system; G93.49 Other encephalopathy; E87.6 Hypokalemia; R29.721 NIHSS score 21
CPT/HCPCS: 70450; 70496; 70498; 70553; 80177; 80185; 80299; 80307; 81001; 82435; 82491; 82550; 82565; 82607; 82947; 84132; 84295; 84484; 84520; 85025; 85240; 85244; 85245; 85246; 85247; 85250; 85379; 85384; 85610; 85670; 85730; 86850; 86900; 86901; 90760; 92610; 93005; 95819; 96360; 97161; 97166; 99285; A9585; G0195; J1953; J2060; J7030; P9612; Q9967